=== PATIENT | female | born 1995 | race Caucasian/White ===

== ENCOUNTER → 2020-01-13 08:43 | Outpatient (CLI) | payer OTHER, SELFPAY ==
[2020-01-13 09:19] LABS: Add Manual Diff / Slide Review NO; Basophils Absolute Auto 0 /uL (0-100); Basophils Percent Auto 0.9 % (0-2); Eosinophils Absolute Auto 200 /uL (0-450); Hematocrit 42.5 % (36-46); Hemoglobin 14.9 g/dL (12.0-16.0); Lymphocytes Absolute Auto 1500 /uL (1100-4500); Lymphocytes Percent Auto 26.8 % (25-40); Mean Corpuscular Hemoglobin 29.1 PG (26-34); Mean Corpuscular Volume 83.1 fL (80-100); Monocytes Absolute Auto 400 /uL (0-900); Monocytes Percent Auto 7.5 % (3-14); Neutrophils Absolute Auto 3400 /uL (1500-7000); Neutrophils Percent Auto 61.8 % (50-75); Platelet Count 214 X10^3/uL (150-400); Red Blood Cell Count 5.11 X10^6/uL (4.0-5.2); Red Cell Distribution Width 13.2 % (11.6-14.8); White Blood Cell Count 5.6 X10^3/uL (4.5-11.0)
[2020-01-13 09:34] LABS: Hemoglobin A1C% w Est Avg Glu 6.1 % (4.0-6.0)
[2020-01-13 10:04] LABS: Alanine Aminotransferase 54 IU/L (<35); Albumin 4.5 g/dL (3.5-5.0); Albumin Globulin Ratio 1.3 (1.0-2.8); Alkaline Phosphatase 68 U/L (38-126); Aspartate Aminotransferase 40 IU/L (14-36); BUN Creatinine Ratio 16.7 (6-22); Bilirubin Total 0.5 mg/dL (0.2-1.3); Blood Urea Nitrogen 11 mg/dL (7-17); Calcium 9.9 mg/dL (8.4-10.2); Carbon Dioxide 27 mmol/L (22-32); Chloride 103 mmol/L (98-107); Cholesterol 216 mg/dL (140-199); Estimated Glomerular Filt Rate > 60.0 mL/min (>60); Globulin 3.5 g/dL (1.7-4.1); Glucose 127 mg/dL (70-100); HDL Cholesterol 40 mg/dL (40-60); HEMOLYSIS < 15 (0-50); LDL Cholesterol Calculated 147 mg/dL (<100); Potassium 4.6 mmol/L (3.4-5.1); Sodium 140 mmol/L (137-145); Triglycerides 147 mg/dL (35-150)
[2020-01-13 10:20] LABS: Follicle Stimulating Hormone 3.03 mIU/mL; Luteinizing Hormone 4.24 mIU/mL
[2020-01-13 10:21] LABS: Prolactin 15.5 ng/mL (3.0-18.6)
[2020-01-13 10:35] LABS: TSH w/ Reflex to FT4 1.61 uIU/mL (0.47-4.68)
[2020-01-13 10:36] LABS: Estradiol, Total 66.2 pg/mL
[2020-01-13 10:38] LABS: Testosterone 25.4 ng/dL (5.71-77.0)
== END ==
PROVIDERS: PCP Registered Nurse Diabetes Educator; Referring Provider Registered Nurse Diabetes Educator; Visit Provider Registered Nurse Diabetes Educator
DX: E66.9 Obesity, unspecified (principal); N91.5 Oligomenorrhea, unspecified; N97.9 Female infertility, unspecified; Z86.32 Personal history of gestational diabetes
CPT/HCPCS: 36415; 80053; 80061; 82627; 82670; 83001; 83002; 83036; 84146; 84403; 84443; 85025

== ENCOUNTER → 2020-01-22 09:18 | Outpatient (CLI) | payer OTHER, SELFPAY ==
[2020-01-22 11:03] LABS: Alanine Aminotransferase 72 IU/L (<35); Albumin 4.5 g/dL (3.5-5.0); Albumin Globulin Ratio 1.3 (1.0-2.8); Alkaline Phosphatase 68 U/L (38-126); Aspartate Aminotransferase 41 IU/L (14-36); Bilirubin Total 0.5 mg/dL (0.2-1.3); Bilirubin Unconjugated 0.4 mg/dL (0.0-1.1); Globulin 3.4 g/dL (1.7-4.1); Glucose 113 mg/dL (70-100); HEMOLYSIS < 15 (0-50); Total Protein 7.9 g/dL (6.3-8.2)
== END ==
PROVIDERS: PCP Registered Nurse Diabetes Educator; Referring Provider Registered Nurse Diabetes Educator; Visit Provider Registered Nurse Diabetes Educator
DX: R73.9 Hyperglycemia, unspecified (principal); R74.8 Abnormal levels of other serum enzymes
CPT/HCPCS: 36415; 80076; 82947

== ENCOUNTER 2020-04-01 16:02 | Emergency (ER) | payer OTHER, SELFPAY ==
[2020-04-01 16:05] VITALS: BP 156/119; PULSE 106; RESP 20; TEMP 36.9; O2SAT 98; BMI 50.1
--- NOTE | 2020-04-01 16:21 | ED_ITS ---
HPI - General Adult General Chief complaint: Urogenital-Female Stated complaint: MISCARRIAGE / BLEEDING ALOT Time Seen by Provider: 04/01/20 16:09 Source: patient Mode of arrival: Ambulatory Limitations: no limitations History of Present Illness HPI narrative: Patient is a 25-year-old female in who 2 days ago found out that she was having a miscarriage. Today she started having bleeding with passage of clots. She is having quite a bit of cramping. No fevers. She states she has gone through multiple pads an hour for the past several hours and was concerned about this so she came to the emergency department. According to review of her medical record her blood type is Rh positive. Related Data Home Medications Medication Instructions Recorded Confirmed prenat.vits,dhara,[id number] 1 tab PO DAILY 03/10/20 03/30/20 Previous Rx's Medication Instructions Recorded metformin 500 mg tablet 500 mg PO DAILY #60 tab 01/29/20 blood sugar diagnostic #120 ea 03/17/20 blood-glucose meter #1 ea 03/17/20 lancets #120 ea 03/17/20 triamcinolone acetonide 0.025 % 1 applic TOPICAL BID #15 g 03/24/20 topical cream hydrocodone-acetaminophen [Greenock] 1 tab PO Q4-6H PRN #7 tab 04/01/20 Allergies Allergy/AdvReac Type Severity Reaction Status Date / Time No Known Drug Allergies Allergy Verified 03/30/20 16:18 Review of Systems Constitutional Constitutional: Denies fever(s) Cardiovascular Cardiovascular: Denies chest pain and Denies dyspnea Respiratory Respiratory: Denies dyspnea Gastrointestinal Gastrointestinal: Reports abdominal pain (Cramping), Denies nausea and Denies vomiting Genitourinary Comments: Vaginal bleeding and cramping Integumentary/Breasts Skin/Breast: Denies lesions and Denies rash Neurologic Neurologic: Denies behavioral changes Psychiatric Psychiatric: Denies behavioral changes Hematologic/Lymphatic Hematologic/Lymphatic: Denies easy bleeding and Denies easy bruising Allergic/Immunologic Allergic/Immunologic: Denies urticaria Patient History Medical History Anxiety (~10/2016) Chicken pox (~2002) Female fertility problem Fractures (~2008) History of gestational diabetes (~2016) Hypertension Impaired fasting blood sugar Irregular menstrual cycle (~2017) Liver enzyme elevation Obesity Oligomenorrhea Screening for cervical cancer Wears glasses Surgical History Anesthesia History of section (~10/31/16) History of surgery on arm (~2004) Family History Mother Cancer Low TSH level Sister Blood disorder Personal history of medical treatment Grandfather Hypertension Hyperlipidemia Stroke Grandmother Hypertension Thyroid disorder Grandmother Cancer Diabetes mellitus Hyperlipidemia Hypertension Stroke Grandfather Family estrangement Family/Other Myocardial infarction Heart murmur Father No problems noted. Social History marital status: number of children: 1 household members: spouse and children lives independently: Yes pets and animals: Yes (X 2 dogs) education level: college (some 14 years Ed) occupational status: employed (Working at a [employer] - minimal exposure) current occupational exposures/hazards: Yes nile/confucianist: Mandaen special nile needs: No Smoking Status: Never smoker second hand exposure: No alcohol intake: former (pre- : social ) substance use type: does not use Smoking Status: Never smoker Exam Initial Vital Signs Initial Vital Signs: Vital Signs Temperature 98.4 F 04/01/20 16:05 Pulse Rate 106 H 04/01/20 16:05 Respiratory Rate 20 04/01/20 16:05 Blood Pressure 156/119 H 04/01/20 16:05 Pulse Oximetry 98 04/01/20 16:05 Const General: cooperative Limitations: mental status not altered HENMT Head: normal to inspection and normocephalic Resp Effort & Inspection: normal respiratory effort Speculum Exam - Cervix: cervical os open OB/External & Speculum: cervical os open Other: Patient did have blood in the vaginal vault. She also had a small amount of tissue in the cervical os. This was removed with ring forceps. Only a small amount of bleeding present prior to removal speculum Neuro General: patient alert and patient awake Extrem General: capillary refill normal Psych Appearance: well kempt Course Orders Ordered: Discontinued Medications Hydrocodone Bitart/Acetaminophen (Hydrocodone/Acet 5/325 Tablet) 1 tab PO NOW ONE Stop: 04/01/20 16:21 Last Admin: 04/01/20 16:45 Dose: 1 tab Documented by: RSTONE Ketorolac Tromethamine (Ketorolac 60 Mg/2 Ml Vial) 30 mg IM NOW ONE Stop: 04/01/20 17:50 Last Admin: 04/01/20 18:14 Dose: 30 mg Documented by: DERRICK Vital Signs Vital signs: Vital Signs - 8 hr 04/01/20 16:05 04/01/20 18:05 04/01/20 18:06 Temperature 98.4 F Pulse Rate 106 H Respiratory Rate 20 Blood Pressure 156/119 H 151/91 H Pulse Oximetry 98 99 Medical Decision Making MDM Narrative Medical decision making narrative: I had a discussion with the patient regarding her symptoms and what she could expect over the next several hours/days. She was given strict return precautions. No indication for RhoGAM as she is Rh positive. Sent home with symptom treatment. She will come back if starts to have new or worsening symptoms. She expressed understanding and agreement. Discharge Plan Departure Patient Disposition: Home Clinical Impression: Incomplete miscarriage Instructions: Dealing With Miscarriage, DI for Miscarriage Activity Restrictions/Additional Instructions: Recommend you contact your OB provider to discuss follow-up. If you started to have chest pain or lightheadedness or shortness of breath please return to the emergency department. Continued bleeding and pain over the next several hours is expected. Return to emergency department for any new or worsening symptoms Prescriptions: New hydrocodone-acetaminophen [Greenock] 5-325 mg tablet 1 tab PO Q4-6H PRN (Reason: pain) Qty: 7 RF: 0 No Action triamcinolone acetonide 0.025 % cream 1 applic topical BID Qty: 15 RF: 1 metformin 500 mg tablet 500 mg PO DAILY Qty: 60 RF: 2 (DME) blood-glucose meter [Blood Glucose Monitoring] Kit See Rx Instructions .ROUTE .MEDSUPPLY Qty: 1 RF: 0 (DME) Blood Glucose Test Strip See Rx Instructions .ROUTE .MEDSUPPLY Qty: 120 RF: 3 (DME) lancets Misc See Rx Instructions .ROUTE .MEDSUPPLY Qty: 120 RF: 3 prenat.vits,dhara,[id number] Tablet 1 tab PO DAILY RF: 0 Referrals: Subhash Velasquez ARNP [Primary Care Provider] -
[2020-04-01] MEDS: HYDROCODONE/ACET 5/325 TABLET 1 TAB PO (16:45)
[2020-04-01 18:05] VITALS: O2SAT 99
[2020-04-01 18:06] VITALS: BP 151/91
--- NOTE | 2020-04-01 18:09 | PC.NURSE ---
Blanca MINER assisted Dr. Whitten with Pelvic exam.
[2020-04-01] MEDS: KETOROLAC 60 MG/2 ML VIAL 30 MG IM (18:14)
== END 2020-04-01 18:24 | disposition home or self-care (01) ==
PROVIDERS: Emergency Provider Emergency Medicine; PCP Registered Nurse Diabetes Educator
DX: O03.4 Incomplete spontaneous abortion without complication (principal)
CPT/HCPCS: 96372; 99281; 99283; J1885

== ENCOUNTER → 2020-08-01 09:05 | Outpatient (CLI) | payer OTHER, SELFPAY ==
[2020-08-01 10:55] LABS: HCG Quantitative /Beta subunit 146.4 mIU/mL
== END ==
PROVIDERS: PCP Registered Nurse Diabetes Educator; Referring Provider Obstetrics & Gynecology; Visit Provider Obstetrics & Gynecology
DX: Z34.81 Encounter for supervision of other normal pregnancy, first trimester (principal)
CPT/HCPCS: 36415; 84702

== ENCOUNTER → 2020-08-03 10:37 | Outpatient (CLI) | payer OTHER, SELFPAY | PROVIDERS: Obstetrics & Gynecology; PCP Registered Nurse Diabetes Educator; Referring Provider Registered Nurse Diabetes Educator; Visit Provider Registered Nurse Diabetes Educator | DX: Z34.81 Encounter for supervision of other normal pregnancy, first trimester (principal) | CPT/HCPCS: 84702 ==

== ENCOUNTER → 2020-08-05 13:31 | Outpatient (CLI) | payer OTHER, SELFPAY ==
[2020-08-05 14:48] LABS: HCG Quantitative /Beta subunit 436 mIU/mL
== END ==
PROVIDERS: PCP Registered Nurse Diabetes Educator; Referring Provider Obstetrics & Gynecology; Visit Provider Obstetrics & Gynecology
DX: O26.859 Spotting complicating pregnancy, unspecified trimester (principal)
CPT/HCPCS: 36415; 84702

== ENCOUNTER → 2020-08-17 16:17 | Outpatient (CLI) | payer OTHER, SELFPAY ==
[2020-08-17 17:40] LABS: HCG Quantitative /Beta subunit 1836.9 mIU/mL
== END ==
PROVIDERS: PCP Registered Nurse Diabetes Educator; Referring Provider Obstetrics & Gynecology; Visit Provider Obstetrics & Gynecology
DX: N91.2 Amenorrhea, unspecified (principal)
CPT/HCPCS: 36415; 84702

== ENCOUNTER → 2020-08-31 09:55 | Outpatient (CLI) | payer OTHER, SELFPAY ==
[2020-08-31 11:22] LABS: HCG Quantitative /Beta subunit 1983.6 mIU/mL
== END ==
PROVIDERS: PCP Registered Nurse Diabetes Educator; Referring Provider Obstetrics & Gynecology; Visit Provider Obstetrics & Gynecology
DX: N91.2 Amenorrhea, unspecified (principal)
CPT/HCPCS: 36415; 84702

== ENCOUNTER → 2020-09-28 11:31 | Outpatient (CLI) | payer OTHER, SELFPAY ==
[2020-09-28 14:03] LABS: COVID19 -Nasal RAPID Negative (Negative)
== END ==
PROVIDERS: PCP Registered Nurse Diabetes Educator; Visit Provider Obstetrics & Gynecology
DX: Z01.812 Encounter for preprocedural laboratory examination (principal); Z20.822 Contact with and (suspected) exposure to COVID-19
CPT/HCPCS: 87635

== ENCOUNTER 2020-09-29 09:41 | Day surgery (SDC) | payer OTHER, SELFPAY ==
[2020-09-28 14:23] VITALS: BMI 44.6
--- NOTE | 2020-09-29 | PATH_ITS ---
[facility] Accession Number: [id number] . 01 Material submitted: . product of conception - PRODUCTS OF CONCEPTION . 02 Diagnosis: Products of Conception: Products of conception identified. [facility] 10/02/2020 1043 Local . 02 Electronically signed: . Mounika Ochoa MD, Pathologist NPI- [id number] . 01 Gross description: . The specimen is received in formalin labeled products of conception and consists of multiple putnam-pink fragments of soft tissue, measuring 4.0 x 4.0 x 1.2 cm in aggregate. No chorionic villi or parts are identified. The specimen is entirely submitted in cassettes A1-A2. ([id number]) /[facility] 09/30/2020 1608 Local . 02 Pathologist provided ICD-10: O02.1 . 02 CPT . 712685 Performed at: 01 [facility] Cyt[facility] [address] [id number] MD Jose J Bhatia MD Phone: [phone] Performed at: 02 [facility] [place] [address] [place], [place] [id number] MD Verna Condon MD Phone: [phone]
[2020-09-29] MEDS: ACETAMINOPHEN 325 MG TABLET 975 MG PO (10:11)
[2020-09-29] MEDS: SCOPOLAMINE 1 PATCH TOP (10:12)
[2020-09-29 10:13] VITALS: BP 158/92; PULSE 77; RESP 20; TEMP 36.1; O2SAT 100; BMI 44.6
[2020-09-29] MEDS: LACTATED RINGERS 1,000 ML 100 ML IV (10:22)
--- NOTE | 2020-09-29 10:41 | PM.HP.1 ---
History of Present Illness History of Present Illness Date Patient Seen: 09/29/20 Time Patient Seen: 10:41 Chief complaint: SDC Narrative: Patient is a 25-year-old 3 para 1 who presents for suction D&C for an incomplete Patient History Medical History Anxiety (~10/2016) Chicken pox (~2002) Female fertility problem Fractures (~2008) History of gestational diabetes (~2016) Hypertension Impaired fasting blood sugar Irregular menstrual cycle (~2017) Liver enzyme elevation Obesity Oligomenorrhea Screening for cervical cancer Wears glasses Surgical History Anesthesia History of section (~10/31/16) History of surgery on arm (~2004) Family & Social History Family History Mother Cancer Low TSH level Sister Blood disorder Personal history of medical treatment Grandfather Hypertension Hyperlipidemia Stroke Grandmother Hypertension Thyroid disorder Grandmother Cancer Diabetes mellitus Hyperlipidemia Hypertension Stroke Grandfather Family estrangement Family/Other Myocardial infarction Heart murmur Father No problems noted. Social History: household members spouse,children lives independently Yes Tobacco & Substance use: Smoking Status Never smoker alcohol intake current alcohol intake frequency holiday/special occasion Substance Use Type does not use Meds Home Medications and Allergies Home Medications Medication Instructions Recorded Confirmed Type metformin 500 mg tablet 500 mg PO DAILY #60 tab 01/29/20 09/28/20 Rx blood sugar diagnostic #120 ea 03/17/20 09/28/20 Rx blood-glucose meter #1 ea 03/17/20 09/28/20 Rx lancets #120 ea 03/17/20 09/28/20 Rx triamcinolone acetonide 0.025 % 1 applic TOPICAL BID #15 g 03/24/20 09/29/20 Rx topical cream Allergies Allergy/AdvReac Type Severity Reaction Status Date / Time No Known Drug Allergies Allergy Verified 09/29/20 10:05 Exam Vital Signs (past 8 hours): - 09/29/20 10:13 Temperature 97 F L Pulse Rate 77 Respiratory Rate 20 Blood Pressure 158/92 H Pulse Oximetry 100 Oxygen Delivery Method Room Air Narrative Exam Narrative: HEENT: No thyromegaly, no anterior cervical or supraclavicular lymphadenopathy. Lungs:Clear to auscultation bilaterally, no wheezes. Cardiovascular: Regular rate and rhythm, no murmurs, rubs, or gallops. Abdomen: Well-healed Pfannenstiel scars. No hepatosplenomegaly. No masses palpable. External genitalia: Normal Vagina: Normal Cervix: Normal Bimanual exam: 7 Week size uterus. Mobile. Assessment & Plan Assessment & Plan narrative: Assessment: 25-year-old 3 para 1 with an incomplete Plan: Suction D&C The risks, benefits, and alternatives to the procedure were explained to the patient. The risks including bleeding, infection, and uterine perforation. She understands these risks and agrees to proceed. A full par Q was held and consent form was signed. COVID-19 COVID-19 status: Negative Result date/Date tested (Pos, Neg/Pending): 09/28/20 Time Spent With Patient Time with patient: less than 15 minutes
--- NOTE | 2020-09-29 10:42 | PM.PREOP ---
Pre-operative Note COVID-19 COVID-19 status: Negative Result date/Date tested (Pos, Neg/Pending): 09/28/20 Interval Note History & Physical reviewed/Exam performed by Physician: Yes Changes to H&P: No H&P completed within 30 days and has changed as indicated here:: 09/29/20
--- NOTE | 2020-09-29 10:49 | SUR.OPER ---
Lithotomy on padded OR bed, head on pillow, arms secured on padded arm boards at <90 degrees abduction. Legs secured in padded yellow fins stirrups.
[2020-09-29 11:25] VITALS: BP 150/85; PULSE 85; RESP 16; TEMP 35.5; O2SAT 96
[2020-09-29 11:30] VITALS: BP 152/82; PULSE 77; RESP 14; O2SAT 95
--- NOTE | 2020-09-29 11:31 | PM.GYNOP.1 ---
Operative Date/Time/Diagnoses Date of procedure: 09/29/20 Time of procedure: 11:31 Pre-op diagnosis: Incomplete miscarriage Post-op diagnosis: same Procedure & Clinicians Procedure: Procedures Operation Date: 09/29/20 10:45 Actual Procedures Side Surgeon p Italo D&Edith Enriquez MD Indications: Incomplete miscarriage Surgeon: Frances Enriquez Anesthesia Type: General (LMA) Operative Notes Findings: 7 week size anteverted uterus Moderate amount of products conception Closure Type: not applicable Specimen(s): products of conception Estimated blood loss (mL): 15 Blood products transfused: none Procedure in detail: After informed consent was obtained, the patient was taken to the operating room where she was placed in the dorsal supine position. After adequate LMA general anesthesia was achieved, she was placed in the dorsal lithotomy position, and prepped and draped in the usual sterile fashion. A time-out was performed. A bivalve speculum was placed into the vagina and the anterior lip of the cervix was grasped with a single-tooth tenaculum. The cervical os was sequentially dilated to the # 9 Hegar dilator. The # 7 curved plastic curette passed easily into the endometrial cavity. Several passes with suction revealed a large amount of products of conception. The curette was removed. Gentle sharp curettage was performed and then several more passes with suction revealed blood only. The instruments were removed from the uterus. The single-tooth tenaculum was removed from the anterior lip of the cervix. The bivalve speculum was removed from the vagina. Sponge, lap, and instrument counts were correct x2. The patient tolerated the procedure well, and was taken to PACU in stable condition. Complications: none Post-operative Condition: stable Disposition: PACU Plan for aftercare: Home after recovery
[2020-09-29 11:37] VITALS: BP 133/93; PULSE 88; RESP 16; O2SAT 98
[2020-09-29 11:42] VITALS: BP 134/91; PULSE 75; RESP 14; TEMP 36.3; O2SAT 99
[2020-09-29] MEDS: OXYCODONE IR 5 MG TABLET PO (11:49)
[2020-09-29 12:03] VITALS: BP 134/90; PULSE 78; RESP 16; TEMP 36.2; O2SAT 98
== END 2020-09-29 12:05 | disposition home or self-care (01) ==
PROVIDERS: PCP Registered Nurse Diabetes Educator; Referring Provider Obstetrics & Gynecology; Visit Provider Obstetrics & Gynecology
PROC: (CPT 58120; principal; 2020-09-29 10:45)
DX: O03.4 Incomplete spontaneous abortion without complication (principal); E66.01 Morbid (severe) obesity due to excess calories; Z68.42 Body mass index [BMI] 45.0-49.9, adult; R73.03 Prediabetes; F41.9 Anxiety disorder, unspecified
CPT/HCPCS: 59812; 82962; J1100; J1885; J2250; J2405; J2704

== ENCOUNTER → 2021-01-11 17:08 | Outpatient (CLI) | payer OTHER, SELFPAY ==
[2021-01-11 18:37] LABS: Glucose 78 mg/dL (70-100)
[2021-01-11 18:53] LABS: Free T4, Direct Thyroxine 1.09 ng/dL (0.78-2.19)
[2021-01-11 19:07] LABS: Progesterone, Total 5.16 ng/mL; Thyroid Stimulating Hormone 0.711 uIU/mL (0.47-4.68)
[2021-01-13 12:09] LABS: Dilute Russell Viper Venom 34.3 sec (0.0-47.0); Lupus Reflex Interpretation Comment: (.); PTT-LA 30.8 sec (0.0-51.9)
== END ==
PROVIDERS: Obstetrics & Gynecology; PCP Registered Nurse Diabetes Educator; Referring Provider Registered Nurse Diabetes Educator; Visit Provider Registered Nurse Diabetes Educator
DX: O03.9 Complete or unspecified spontaneous abortion without complication (principal); N92.6 Irregular menstruation, unspecified; N96 Recurrent pregnancy loss; R73.01 Impaired fasting glucose; R73.9 Hyperglycemia, unspecified
CPT/HCPCS: 36415; 81240; 81241; 82947; 84144; 84439; 84443; 85598; 85613; 86850; 86900; 86901

== ENCOUNTER → 2021-02-24 12:48 | Outpatient (CLI) | payer OTHER, SELFPAY ==
[2021-02-24 13:28] LABS: COVID19 -Nasal RAPID Negative (Negative)
== END ==
PROVIDERS: PCP Registered Nurse Diabetes Educator; Visit Provider Nurse Practitioner Family
DX: Z20.822 Contact with and (suspected) exposure to COVID-19 (principal); R05.9 Cough, unspecified; R09.81 Nasal congestion; R09.89 Other specified symptoms and signs involving the circulatory and respiratory systems
CPT/HCPCS: 87635

== ENCOUNTER → 2021-07-12 12:16 | Outpatient (CLI) | payer BC, SELFPAY ==
[2021-07-12 14:48] LABS: HCG Quantitative /Beta subunit 185 mIU/mL
== END ==
PROVIDERS: PCP Registered Nurse Diabetes Educator; Referring Provider Obstetrics & Gynecology; Visit Provider Obstetrics & Gynecology
DX: N91.2 Amenorrhea, unspecified (principal)
CPT/HCPCS: 36415; 84702

== ENCOUNTER → 2021-07-14 12:33 | Outpatient (CLI) | payer BC, SELFPAY ==
[2021-07-14 14:27] LABS: HCG Quantitative /Beta subunit 427.8 mIU/mL
== END ==
PROVIDERS: PCP Registered Nurse Diabetes Educator; Referring Provider Obstetrics & Gynecology; Visit Provider Obstetrics & Gynecology
DX: N91.2 Amenorrhea, unspecified (principal)
CPT/HCPCS: 36415; 84702

== ENCOUNTER → 2021-08-17 15:45 | Outpatient (CLI) | payer BC, SELFPAY ==
[2021-08-17 16:34] LABS: Add Manual Diff / Slide Review NO; Basophils Absolute Auto 0 /uL (0-100); Basophils Percent Auto 0.4 % (0-2); Eosinophils Absolute Auto 300 /uL (0-450); Eosinophils Percent Auto 3.1 % (2-4); Hematocrit 39.2 % (36-46); Hemoglobin 13.4 g/dL (12.0-16.0); Lymphocytes Absolute Auto 2000 /uL (1100-4500); Lymphocytes Percent Auto 21.4 % (25-40); Mean Corpuscular HGB Conc 34.3 % (30-36); Mean Corpuscular Hemoglobin 27.8 PG (26-34); Mean Corpuscular Volume 81.2 fL (80-100); Monocytes Absolute Auto 500 /uL (0-900); Monocytes Percent Auto 4.8 % (3-14); Neutrophils Absolute Auto 6700 /uL (1500-7000); Neutrophils Percent Auto 70.3 % (50-75); Platelet Count 224 X10^3/uL (150-400); Red Blood Cell Count 4.82 X10^6/uL (4.0-5.2); Red Cell Distribution Width 13.9 % (11.6-14.8); White Blood Cell Count 9.5 X10^3/uL (4.5-11.0)
[2021-08-17 16:50] LABS: Alanine Aminotransferase 26 IU/L (<35); Aspartate Aminotransferase 24 IU/L (14-36); BUN Creatinine Ratio 14.3 (6-22); Blood Urea Nitrogen 9 mg/dL (7-17); Estimated Glomerular Filt Rate > 60 mL/min (>60); Uric Acid 3.9 mg/dL (2.5-6.2)
[2021-08-17 17:01] LABS: Hemoglobin A1C% w Est Avg Glu 5.2 % (4.0-6.0)
[2021-08-18 20:43] LABS: Hepatitis B Surface Antigen NEGATIVE s/c (NEGATIVE); Rubella Antibody IgG 4.2 IU/mL (>15)
[2021-08-18 20:57] LABS: HIV 1 & 2 Ab/Ag 4th Gen Combo NEGATIVE (NEGATIVE); Hep C Virus Ab w/Reflex Quant NEGATIVE s/c (NEGATIVE)
[2021-08-19 07:45] LABS: RPR Screen Non Reactive (Non Reactive); Varicella IgG Antibody 201 index (Immune >165)
== END ==
PROVIDERS: PCP Registered Nurse Diabetes Educator; Referring Provider Obstetrics & Gynecology; Visit Provider Obstetrics & Gynecology
DX: O09.291 Supervision of pregnancy with other poor reproductive or obstetric history, first trimester (principal); Z3A.10 10 weeks gestation of pregnancy; I10 Essential (primary) hypertension; Z86.32 Personal history of gestational diabetes
CPT/HCPCS: 36415; 80055; 82565; 83036; 84450; 84460; 84520; 84550; 86787; 86803; 86850; 86900; 86901; 87389

== ENCOUNTER → 2021-08-19 13:37 | Outpatient (CLI) | payer BC, SELFPAY ==
[2021-08-19 13:56] LABS: Appearance Urine UA CLEAR; Bilirubin Urine UA NEGATIVE (NEGATIVE); Color Urine UA YELLOW; Glucose Urine UA NEGATIVE (Negative); Ketones Urine UA NEGATIVE (NEGATIVE); Leukocyte Esterase Urine UA TRACE (NEGATIVE); Nitrite Urine UA NEGATIVE (Negative); Occult Blood Urine UA NEGATIVE (Negative); Protein Urine UA NEGATIVE (Negative); Specific Gravity Urine UA >=1.030 (1.000-1.035); Urobilinogen Urine UA 0.2 E.U./dL (0.2)
[2021-08-19 14:13] LABS: Bacteria Urine Many (>30); Calcium Oxalate Crystals Urine Moderate; Culture Indicated Urine Specimen Cultured; RBC Urine None Seen (0-5/HPF); Squamous Epithelial Cell Urine 5-10 /HPF (0-5/HPF); WBC Urine 5-10/HPF (0-5/HPF)
== END ==
PROVIDERS: PCP Registered Nurse Diabetes Educator; Referring Provider Obstetrics & Gynecology; Visit Provider Obstetrics & Gynecology
DX: Z34.80 Encounter for supervision of other normal pregnancy, unspecified trimester (principal)
CPT/HCPCS: 81001; 87086

== ENCOUNTER → 2021-09-15 16:02 | Outpatient (CLI) | payer BC, SELFPAY ==
[2021-09-15 20:47] LABS: Urine N gonorrhoeae NOT DETECTED
[2021-09-15 21:09] LABS: Urine Chlamydia NOT DETECTED
== END ==
PROVIDERS: PCP Registered Nurse Diabetes Educator; Visit Provider Obstetrics & Gynecology
DX: Z34.82 Encounter for supervision of other normal pregnancy, second trimester (principal); Z3A.13 13 weeks gestation of pregnancy
CPT/HCPCS: 87491; 87591

== ENCOUNTER → 2021-11-09 09:11 | Outpatient (CLI) | payer BC, SELFPAY ==
--- NOTE | 2021-11-09 09:13 | DI.US.S_ITS ---
PROCEDURE: US OB >= 14 WEEKS FETUS INDICATIONS: anatomy scan OUTSIDE/PRIOR DATING DATA: Last menstrual period (LMP): 06/03/2021. LMP-based estimated date of delivery (OVIDIO): 03/10/2022. First dating scan (date and location): 11/09/2021. Estimated date of delivery (OVIDIO) from first dating scan: 03/18/2022. TECHNIQUE: Real-time scanning was performed of the fetus, with image documentation and biometric measurements. Endovaginal scanning: Not performed. COMPARISON: [facility], US, US OB >= 14 WEEKS FETUS, 10/15/2021, 15:14. FINDINGS: General: A single living intrauterine gestation is present. Presentation: Breech. Placenta: Placental position is posterior , without previa. Amniotic fluid index: 17.1 cm, normal range is 5-24 cm. Single deepest vertical pocket is 5.1 cm. heart rate: 143 beats per minute. Maternal cervical canal: 4.6 cm long. Normal lower limit is 2.5 cm. biometrics: Biparietal diameter: 5.1 cm, 21 weeks 3 days Head circumference: 19.4 cm, 21 weeks 4 days Abdominal circumference: 17.6 cm, 22 weeks 2 days Femur length: 3.8 cm, 22 weeks 1 day estimated gestational age by initial ultrasound: 21 weeks 4 days Composite gestational age from present scan: 21 weeks 6 days Estimated weight and percentile: 484 g, 77th percentile Anatomic survey: Neuro: Ventricles are non-dilated at less than 10 mm. Cisterna magna is normal at 3-11 mm. Cerebellum is normal in size and morphology. Nuchal skin fold: Normal at less than 6 mm between 14-21 weeks gestational age. Face: Nose and lips, facial profile are normal. Spine: No evidence for spina bifida. Heart: Four-chamber heart view and ventricular outflow tracts not well visualized. Diaphragm: Diaphragm is intact. Stomach: Left-sided stomach is present. Kidneys: No hydronephrosis. Normal is less than 5 mm in 2nd trimester, less than 7 mm in 3rd trimester. Cord: 3-vessel cord has orthotopic insertion. Bladder: Normal in size. Extremities: All 4 extremities identified. IMPRESSION: 1. Single living intrauterine in breech presentation. 2. Four chamber cardiac view and ventricular outflow tracts were not well visualized. Follow-up/repeat evaluation can be performed if indicated. 3. Otherwise normal 2nd trimester anatomy survey. No anomalies detected at this time. We strive to produce accurate, complete, and clear reports of imaging services. To assist us in improving patient care, this report was composed using standard report templates and voice recognition software. Therefore, it may contain abnormal punctuation, insertions and/or omissions. Occasional wrong-word or sound-alike substitutions may occur. Though we review the report and make efforts to correct it, we do recommend that the report be read carefully in proper context to recognize any text inaccuracies. Dictated by: Mitchell Harrell M.D. on 11/09/2021 at 20:29 Approved by: Mitchell Harrell M.D. on 11/09/2021 at 20:35
[2021-11-11 21:07] LABS: AFP, Serum 31.2 ng/mL (.); Estriol, Free 1.83 ng/mL (.); Inhibin A, Dimeric 82.45 pg/mL (.); Inhibin A, MoM See interpretation. (.); Maternal Ethnicity Caucasian (.); Maternal Weight 307 lbs (.); Number of Fetuses No (.); OSBR Risk 1 IN 10000 (.); Results Report (.); Test Results See interpretation. (.); hCG, MoM See interpretation. (.); hCG, Serum 9908 mIU/mL (.)
== END ==
PROVIDERS: PCP Registered Nurse Diabetes Educator; Referring Provider Obstetrics & Gynecology; Visit Provider Obstetrics & Gynecology
DX: Z34.92 Encounter for supervision of normal pregnancy, unspecified, second trimester (principal); Z3A.21 21 weeks gestation of pregnancy
CPT/HCPCS: 36415; 76811; 82105; 82677; 84702; 86336

== ENCOUNTER → 2021-12-01 11:03 | Outpatient (CLI) | payer BC, SELFPAY ==
--- NOTE | 2021-12-01 11:04 | DI.US.S_ITS ---
PROCEDURE: US OB FOLLOW UP INDICATIONS: Heart and outflow tracks no well seen on Anatomy scan OUTSIDE/PRIOR DATING DATA: Last menstrual period (LMP): 06/03/2021. LMP-based estimated date of delivery (OVIDIO): 03/10/2022. First dating scan (date and location): 11/09/2021; Dr. Enriquez. Estimated date of delivery (OVIDIO) from first dating scan: 03/18/2022. TECHNIQUE: Real-time scanning was performed of the fetus, with image documentation and biometric measurements. Endovaginal scanning: Not performed COMPARISON: [facility], OB >= 14 WEEKS FETUS, 10/15/2021, 15:14. [facility], , OB >= 14 WEEKS FETUS, 11/09/2021, 10:55. FINDINGS: General: A single living intrauterine gestation is present. Presentation: Cephalic. Placenta: Placental position is posterior , without previa. Amniotic fluid index: 12.7 cm, normal range is 5-24 cm. Single deepest vertical pocket is 4.7 cm. heart rate: 147 beats per minute. Maternal cervical canal: 4.6 cm long. Normal lower limit is 2.5 cm. biometrics: Not performed. Clinically estimated gestational age: 24 weeks 5 days Other: There is a four-chamber heart. Ventricular outflow views are suboptimal due to maternal obesity and lie. No definitive cardiac abnormalities identified. IMPRESSION: 1. A single living intrauterine gestation redemonstrated. 2. Normal four-chamber heart. Ventricular outflow views are suboptimal. No definitive cardiac anomaly. We strive to produce accurate, complete, and clear reports of imaging services. To assist us in improving patient care, this report was composed using standard report templates and voice recognition software. Therefore, it may contain abnormal punctuation, insertions and/or omissions. Occasional wrong-word or sound-alike substitutions may occur. Though we review the report and make efforts to correct it, we do recommend that the report be read carefully in proper context to recognize any text inaccuracies. Dictated by: Villa Call M.D. on 12/01/2021 at 16:59 Approved by: Villa Call M.D. on 12/01/2021 at 17:04
== END ==
PROVIDERS: PCP Registered Nurse Diabetes Educator; Referring Provider Obstetrics & Gynecology; Visit Provider Obstetrics & Gynecology
DX: Z36.2 Encounter for other antenatal screening follow-up (principal); Z3A.24 24 weeks gestation of pregnancy
CPT/HCPCS: 76816; 76817

== ENCOUNTER → 2021-12-28 10:18 | Outpatient (CLI) | payer BC, SELFPAY ==
[2021-12-28 12:05] LABS: Hemoglobin 11.9 g/dL (12.0-16.0)
[2021-12-28 12:19] LABS: GTT (PREG) 1 Hour PP 50gm Dose 150 mg/dL (76-139)
== END ==
PROVIDERS: PCP Registered Nurse Diabetes Educator; Referring Provider Obstetrics & Gynecology; Visit Provider Obstetrics & Gynecology
DX: Z34.82 Encounter for supervision of other normal pregnancy, second trimester (principal); Z3A.26 26 weeks gestation of pregnancy
CPT/HCPCS: 36415; 82950; 85014; 85018

== ENCOUNTER → 2022-01-10 09:02 | Outpatient (CLI) | payer BC, SELFPAY ==
[2022-01-10 10:15] LABS: Glucose Fasting Gestational 98 mg/dL (76-95)
[2022-01-10 12:18] LABS: Glucose 2 Hour Gest 160 mg/dL (76-155)
[2022-01-10 12:43] LABS: Glucose Tol Interp,Gestational INTERPRETATION
[2022-01-10 13:39] LABS: Glucose 3 Hour Gest 97 mg/dL (76-140)
[2022-01-10 16:08] LABS: Glucose 1 Hour Gest 190 mg/dL (76-180)
== END ==
PROVIDERS: PCP Registered Nurse Diabetes Educator; Referring Provider Obstetrics & Gynecology; Visit Provider Obstetrics & Gynecology
DX: O09.292 Supervision of pregnancy with other poor reproductive or obstetric history, second trimester (principal); R73.09 Other abnormal glucose; Z86.32 Personal history of gestational diabetes; Z3A.00 Weeks of gestation of pregnancy not specified
CPT/HCPCS: 36415; 82951; 82952

== ENCOUNTER 2022-02-11 12:26 | Outpatient (CLI) | payer BC, SELFPAY ==
[2022-02-11 14:39] LABS: Add Manual Diff / Slide Review NO; Basophils Absolute Auto 0 /uL (0-100); Basophils Percent Auto 0.1 % (0-2); Eosinophils Absolute Auto 100 /uL (0-450); Eosinophils Percent Auto 1.5 % (2-4); Hematocrit 36.3 % (36-46); Hemoglobin 12.5 g/dL (12.0-16.0); Lymphocytes Absolute Auto 1700 /uL (1100-4500); Lymphocytes Percent Auto 18.2 % (25-40); Mean Corpuscular HGB Conc 34.4 % (30-36); Mean Corpuscular Hemoglobin 28.3 PG (26-34); Mean Corpuscular Volume 82.1 fL (80-100); Monocytes Absolute Auto 500 /uL (0-900); Monocytes Percent Auto 5.6 % (3-14); Neutrophils Absolute Auto 6900 /uL (1500-7000); Neutrophils Percent Auto 74.6 % (50-75); Platelet Count 190 X10^3/uL (150-400); Red Blood Cell Count 4.42 X10^6/uL (4.0-5.2); Red Cell Distribution Width 13.6 % (11.6-14.8); White Blood Cell Count 9.3 X10^3/uL (4.5-11.0)
[2022-02-11 14:51] LABS: Alanine Aminotransferase 14 IU/L (<35); Albumin 3.7 g/dL (3.5-5.0); Alkaline Phosphatase 114 U/L (38-126); Aspartate Aminotransferase 27 IU/L (14-36); BUN Creatinine Ratio 15.9 (6-22); Bilirubin Total 0.4 mg/dL (0.2-1.3); Blood Urea Nitrogen 7 mg/dL (7-17); Calcium 9.2 mg/dL (8.4-10.2); Carbon Dioxide 20 mmol/L (22-32); Chloride 106 mmol/L (98-107); Estimated Glomerular Filt Rate > 60 mL/min (>60); Globulin 3.6 g/dL (1.7-4.1); Glucose 71 mg/dL (70-100); HEMOLYSIS < 15 (0-50); Potassium 3.9 mmol/L (3.4-5.1); Sodium 137 mmol/L (137-145); Total Protein 7.3 g/dL (6.3-8.2)
[2022-02-11 15:12] LABS: Creatinine Urine Random 163.6 mg/dL
[2022-02-11 15:19] LABS: Protein (Total) Urine Random < 5 mg/dL (0-12); Protein Creatinine Ratio Urine 0.03 GRAM/24H
== END 2022-02-11 13:55 | disposition home or self-care (01) ==
LOC: LABOR 13:10 → OB 02-14 08:55
PROVIDERS: PCP Registered Nurse Diabetes Educator; Referring Provider Obstetrics & Gynecology; Visit Provider Obstetrics & Gynecology
DX: O24.414 Gestational diabetes mellitus in pregnancy, insulin controlled (principal); Z3A.35 35 weeks gestation of pregnancy; O13.3 Gestational [pregnancy-induced] hypertension without significant proteinuria, third trimester; Z3A.37 37 weeks gestation of pregnancy
CPT/HCPCS: 59025; 76815; 80053; 82570; 84156; 85025; G0378; G0379

== ENCOUNTER → 2022-02-11 13:57 | Outpatient (CLI) | payer BC, SELFPAY ==
--- NOTE | 2022-02-11 13:58 | DI.US.S_ITS ---
PROCEDURE: US OB LIMITED INDICATIONS: growth and fluids OUTSIDE/PRIOR DATING DATA: Last menstrual period (LMP): 06/03/2021. LMP-based estimated date of delivery (OVIDIO): 03/10/2022. First dating scan (date and location): 11/09/2021; ; Dr. Enriquez. Estimated date of delivery (OVIDIO) from first dating scan: 03/18/2022. The calculations are made using the working OVIDIO of 03/18/2022. TECHNIQUE: Real-time scanning was performed of the fetus, with image documentation and biometric measurements. Biophysical profile was also obtained. Endovaginal scanning: Not performed COMPARISON: [facility], OB >= 14 WEEKS FETUS, 01/14/2022, 10:19. [facility] OB FOLLOW UP, 12/01/2021, 11:42. [facility] OB >= 14 WEEKS FETUS, 11/09/2021, 10:55. [facility] OB >= 14 WEEKS FETUS, 10/15/2021, 15:14. [facility], OB <= 14 WEEKS FETUS, 08/17/2021, 15:42. FINDINGS: General: A single living intrauterine gestation is present. Presentation: Cephalic. Placenta: Placental position is posterior , without previa. Amniotic fluid index: 13.7 cm, normal range is 5-24 cm. Single deepest vertical pocket is 4.9 cm. heart rate: 150 beats per minute. Maternal cervical canal: Not visualized. biometrics: Biparietal diameter: 35 weeks 3 days Head circumference: 35 weeks 4 days Abdominal circumference: 36 weeks 5 days Femur length: 35 weeks 1 day Clinically estimated gestational age: 35 weeks 0 days Composite gestational age from present scan: 37 weeks 2 days Estimated weight and percentile: 2834 g; 77%. IMPRESSION: 1. A single living intrauterine gestation with appropriate interval growth. 2. The estimated weight is 2834 g, 77% for gestation age. 3. heart visualization remains suboptimal due to maternal body habitus, lie and gestational age. We strive to produce accurate, complete, and clear reports of imaging services. To assist us in improving patient care, this report was composed using standard report templates and voice recognition software. Therefore, it may contain abnormal punctuation, insertions and/or omissions. Occasional wrong-word or sound-alike substitutions may occur. Though we review the report and make efforts to correct it, we do recommend that the report be read carefully in proper context to recognize any text inaccuracies. Measurement variability for biometric dating: +/- 7 days from 14 weeks to 15 weeks 6 days gestation, +/- 10 days from 16 weeks to 21 weeks 6 days gestation, +/- 2 weeks from 22 weeks to 27 weeks 6 days gestation, +/- 3 weeks for 28 weeks gestation or later. weight reference: 4500 g or EFW >90/95% is considered macrosomia or large for gestational age. EFW <10% is small for gestational age. EFW 5% or less is considered intra-uterine growth restriction.>> Dictated by: Villa Call M.D. on 02/11/2022 at 15:43 Approved by: Villa Call M.D. on 02/11/2022 at 15:54
== END ==
PROVIDERS: PCP Registered Nurse Diabetes Educator; Referring Provider Obstetrics & Gynecology; Visit Provider Obstetrics & Gynecology
DX: O13.3 Gestational [pregnancy-induced] hypertension without significant proteinuria, third trimester (principal); Z3A.37 37 weeks gestation of pregnancy
CPT/HCPCS: 76815

== ENCOUNTER 2022-02-18 13:17 | Observation (INO) | payer BC, SELFPAY ==
--- NOTE | 2022-02-18 14:51 | DI.US.S_ITS ---
PROCEDURE: US OB BIOPHYSICAL PROFILE INDICATIONS: INTERMITTENT VARIABLE HEART DECELERATIONS. GDM. OUTSIDE/PRIOR DATING DATA: Last menstrual period (LMP): 06/03/2021. LMP-based estimated date of delivery (OVIDIO): 03/10/2022. First dating scan (date and location): 11/09/2021. Estimated date of delivery (OVIDIO) from first dating scan: 03/18/2022. TECHNIQUE: Real-time scanning was performed of the fetus for biophysical profile, with image documentation. Endovaginal scanning: Not performed COMPARISON: None. FINDINGS: General: A single living intrauterine gestation is present. Presentation: Vertex. Placenta: Placental position is posterior. Placental edge not identified with regards to the cervix. Amniotic fluid index: 17.7 cm, normal range is 5-24 cm. Single deepest vertical pocket is 6.4 cm. heart rate: 145 beats per minute. Maternal cervical canal: Not well visualized. estimated gestational age: 36 weeks 0 days Biophysical profile: Tone: 2 points. Movement: 2 points. Respiration: 2 points. Largest pocket of fluid: 2 points. IMPRESSION: 1. Single living intrauterine . 2. Biophysical profile score 8/8. We strive to produce accurate, complete, and clear reports of imaging services. To assist us in improving patient care, this report was composed using standard report templates and voice recognition software. Therefore, it may contain abnormal punctuation, insertions and/or omissions. Occasional wrong-word or sound-alike substitutions may occur. Though we review the report and make efforts to correct it, we do recommend that the report be read carefully in proper context to recognize any text inaccuracies. Dictated by: Mitchell Harrell M.D. on 02/18/2022 at 17:44 Approved by: Mitchell Harrell M.D. on 02/18/2022 at 17:52
== END 2022-02-18 15:57 | disposition home or self-care (01) ==
PROVIDERS: Admitting Provider Obstetrics & Gynecology; PCP Registered Nurse Diabetes Educator; Referring Provider Obstetrics & Gynecology; Visit Provider Obstetrics & Gynecology
DX: O24.414 Gestational diabetes mellitus in pregnancy, insulin controlled (principal); O13.3 Gestational [pregnancy-induced] hypertension without significant proteinuria, third trimester; Z3A.36 36 weeks gestation of pregnancy
CPT/HCPCS: 59025; 59050; 76819; G0378; G0379

== ENCOUNTER 2022-02-25 13:21 | Outpatient (CLI) | payer BC, SELFPAY ==
--- NOTE | 2022-02-25 14:32 | P.TNLD_ITS ---
Visit Information Visit Information Date of evaluation: 02/25/22 Primary OB Provider: Frances Enriquez On-call OB Provider: Tess Nguyen Reason for Evaluation: Yes non-stress test Comments/Additional reasons for admission: Patient here for a scheduled nonstress test for GDM-A2 and gestational hypertension. She is on labetalol 100 mg po BID. Vital Signs Vital Signs: BP 121/63 PFSH Medical History Anxiety (~10/2016) Chicken pox (~2002) Female fertility problem Fractures (~2008) History of gestational diabetes (~2016) Hypertension Impaired fasting blood sugar Irregular menstrual cycle (~2017) Liver enzyme elevation Obesity Oligomenorrhea Screening for cervical cancer Wears glasses Surgical History Anesthesia History of section (~10/31/16) History of surgery on arm (~2004) Family History Mother Cancer Low TSH level Sister Blood disorder Personal history of medical treatment Grandfather Hypertension Hyperlipidemia Stroke Grandmother Hypertension Thyroid disorder Grandmother Cancer Diabetes mellitus Hyperlipidemia Hypertension Stroke Grandfather Family estrangement Family/Other Myocardial infarction Heart murmur Father No problems noted. Social History marital status: number of children: 1 household members: spouse and children lives independently: Yes pets and animals: Yes (X 2 dogs) education level: college (some 14 years Ed) occupational status: employed (Working at a [employer] - minimal exposure) current occupational exposures/hazards: Yes nile/christianity: Anabaptist special nile needs: No Smoking Status: Never smoker second hand exposure: No alcohol intake: current substance use type: does not use Evaluation Evaluation Baseline heart rate: 145 Variability: Moderate (11-25) monitor accelerations: Present Monitor Decelerations: Absent Diagnosis, Plan/Disposition Plan/Disposition Plan: 36wk4d pregancy, GDM-A2, gestational HTN. NST is reactive, reassuring. Discharge home. Follow-up as per primary provider OB Disposition: home
== END 2022-02-25 14:15 | disposition home or self-care (01) ==
LOC: LABOR 13:57 → OB 03-01 08:00
PROVIDERS: PCP Registered Nurse Diabetes Educator; Referring Provider Obstetrics & Gynecology; Visit Provider Obstetrics & Gynecology
DX: O24.414 Gestational diabetes mellitus in pregnancy, insulin controlled (principal); O13.3 Gestational [pregnancy-induced] hypertension without significant proteinuria, third trimester; Z3A.36 36 weeks gestation of pregnancy
CPT/HCPCS: 59025; G0378; G0379

== ENCOUNTER 2022-03-04 05:42 | Inpatient (IN) | payer BC, SELFPAY ==
[2022-03-04 06:32] LABS: Add Manual Diff / Slide Review NO; Basophils Absolute Auto 0 /uL (0-100); Basophils Percent Auto 0.4 % (0-2); Eosinophils Absolute Auto 300 /uL (0-450); Eosinophils Percent Auto 3.4 % (2-4); Hematocrit 34.1 % (36-46); Hemoglobin 11.7 g/dL (12.0-16.0); Lymphocytes Absolute Auto 1800 /uL (1100-4500); Lymphocytes Percent Auto 23.8 % (25-40); Mean Corpuscular HGB Conc 34.3 % (30-36); Mean Corpuscular Hemoglobin 27.9 PG (26-34); Mean Corpuscular Volume 81.4 fL (80-100); Monocytes Absolute Auto 400 /uL (0-900); Monocytes Percent Auto 5.9 % (3-14); Neutrophils Absolute Auto 5000 /uL (1500-7000); Neutrophils Percent Auto 66.5 % (50-75); Platelet Count 171 X10^3/uL (150-400); Red Blood Cell Count 4.18 X10^6/uL (4.0-5.2); Red Cell Distribution Width 13.8 % (11.6-14.8); White Blood Cell Count 7.5 X10^3/uL (4.5-11.0)
[2022-03-04 06:44] LABS: COVID19 -Nasal RAPID Negative (Negative)
--- NOTE | 2022-03-04 07:28 | SUR.OPER ---
Supine on Padded OR bed, head on pillow, safety belt at thigh, arms secured on padded arm boards at <90 degrees abduction. Bump under right buttock. Legs uncrossed with pillow under knees, gel pad to heels, tape over blanket to lower legs.
[2022-03-04 08:21] VITALS: BP 135/83
[2022-03-04] MEDS: CEFAZOLIN VIAL 3 GM in SODIUM CHLORIDE 0.9% 100 ML IV (08:50)
--- NOTE | 2022-03-04 09:13 | SUR.OPER ---
Single live baby born boy at 0857. Pre procedure heart rate was 152. Placenta delivered at 0900. Placenta and 2 tubes of cord blood sent with L&D RN Pat Crain.
[2022-03-04 09:52] VITALS: BP 104/60; PULSE 74; RESP 19; TEMP 36.4; O2SAT 95
[2022-03-04 09:57] VITALS: BP 116/68; PULSE 74; RESP 14; O2SAT 95
[2022-03-04 10:02] VITALS: BP 118/69; PULSE 67; RESP 16; O2SAT 98
[2022-03-04 10:07] VITALS: BP 112/58; PULSE 66; RESP 19; O2SAT 98
--- NOTE | 2022-03-04 10:16 | P.HPOB_ITS ---
OB HPI Date/Time Date of admission: 03/04/22 Date Patient Seen: 03/04/22 Time Patient Seen: 07:30 History of Present Condition Chief complaint: REPEAT OVIDIO Calculator Estimated Delivery Date Method Current WG Current Estimate 03/18/22 Ultrasound #1 38w 1d Other Estimates 03/10/22 LMP (Uncertain) 39w 2d Estimated Gestational Age (weeks): 38 : 4 Para: 1 care: good care, initiated at week # (9), number of visits (10) and pounds weight gain (42) Dating criteria OB: LMP confirmed by 1st trimester US Ultrasounds: normal 1st trimester US and normal mid trimester US Obstetrical complications: gestational diabetes and gestational hypertension Medical complications OB: other (obesity) Indications Operative indications ( section): previous uterine surgery Preadmission Labs Last OB Lab Results: Blood Type O Positive 03/04/22 06:00 Antibody Screen Negative 03/04/22 06:00 Hematocrit 32.5 % (36-46) L 03/05/22 06:03 Hemoglobin 11.1 g/dL (12.0-16.0) L 03/05/22 06:03 Hepatitis B Surface Antigen Negative s/c (NEGATIVE) 08/17/21 15 :52 Hepatitis C Antibody Negative s/c (NEGATIVE) 08/17/21 15:52 Rubella Antibody 4.2 IU/mL (>15) L 08/17/21 15:52 Varicella-Zoster IgG Antibody 201 index (Immune >165) 08/17/21 15:52 Glucose 1 Hour 150 mg/dL (76-139) H 12/28/21 11:42 Glucose Tolerance Testing: Fasting (98), 1 hr (190), 2 hr (160) and 3 hr (97) -: Chlamydia screen: negative, Gonorrhea screen: negative and Urine: negative -: PAP smear: Normal (01/11) Genetic Screens: Quad screen: Normal External Labs -: Urine: negative Prior (ies) Past Pregnancies Del. Date GA/Weeks Labor Lgth Wt Sex Route Outcome Anesthesia Place Delv Breastfeed Preg Comp Name Unknown 6 spontaneous 10/31/16 37.2 48 8 lb 8 oz Female live - full t erm epidural Gonzales 20 months gestational hypertension gestational diabetes oligohydramnios Mary 03/24/20 6 spontaneous Delivery Date: 10/31/16 Last Updated by: Jenna Dubose R.N. *Induction from Monday night with C/S Monday pm... *Primary C/S for FTP/Arrest of Dilation and Cat II FHR *Start of her Anxiety PP Evaluation Evaluation Baseline heart rate: 145 Variability: Moderate (11-25) monitor accelerations: Present Monitor Decelerations: Absent PFSH Medical History Anxiety (~10/2016) Chicken pox (~2002) Female fertility problem Fractures (~2008) History of gestational diabetes (~2016) Hypertension Impaired fasting blood sugar Irregular menstrual cycle (~2017) Liver enzyme elevation Obesity Oligomenorrhea Screening for cervical cancer Wears glasses Surgical History Anesthesia History of section (~10/31/16) History of surgery on arm (~2004) Family History Mother Cancer Low TSH level Sister Blood disorder Personal history of medical treatment Grandfather Hypertension Hyperlipidemia Stroke Grandmother Hypertension Thyroid disorder Grandmother Cancer Diabetes mellitus Hyperlipidemia Hypertension Stroke Grandfather Family estrangement Family/Other Myocardial infarction Heart murmur Father No problems noted. Social History marital status: number of children: 1 household members: spouse and children lives independently: Yes pets and animals: Yes (X 2 dogs) education level: college (some 14 years Ed) occupational status: employed (Working at a [employer] - minimal exposure) current occupational exposures/hazards: Yes nile/bahai: Holiness special nile needs: No Smoking Status: Never smoker second hand exposure: No alcohol intake: current substance use type: does not use Meds Home Medications and Allergies Home Medications Medication Instructions Recorded Confirmed Type blood sugar diagnostic (Blood #120 ea 01/12/22 03/05/22 Rx Glucose Test strips) lancets #120 ea 01/12/22 03/05/22 Rx docusate sodium 100 mg capsule 200 mg PO DAILY #20 caps 03/05/22 Rx (Colace) ibuprofen 800 mg tablet 800 mg PO Q6H PRN pain #20 tabs 03/05/22 Rx labetalol 100 mg tablet 100 mg PO DAILY #60 tabs 03/05/22 03/05/22 Rx oxycodone 5 mg tablet 5 mg PO Q4H PRN pain #20 tabs 03/05/22 Rx Allergies Allergy/AdvReac Type Severity Reaction Status Date / Time No Known Drug Allergies Allergy Verified 02/11/22 11:59 OB Exam Narrative Exam Narrative: Generally: Patient lying in bed, no acute distress Lungs: Clear to auscultation bilaterally Cardiovascular: Regular rate and rhythm Fundal height: 42 cm Estimated weight: 8 1/2 pounds Extremities: 1+ edema Objective Labs Result Diagrams: 03/05/22 06:03 Labs: Laboratory Results - last 24 hr 03/04/22 03/04/22 03/04/22 06:00 06:00 06:00 WBC 7.5 RBC 4.18 Hgb 11.7 L Hct 34.1 L MCV 81.4 MCH 27.9 MCHC 34.3 RDW 13.8 Plt Count 171 Neut % (Auto) 66.5 Lymph % (Auto) 23.8 L Sierra % (Auto) 5.9 Eos % (Auto) 3.4 Baso % (Auto) 0.4 Neut # (Auto) 5000 Lymph # (Auto) 1800 Sierra # (Auto) 400 Eos # (Auto) 300 Baso # (Auto) 0 SARS-CoV-2 (PCR) Negative Blood Type O Positive Antibody Screen Negative Assessment and Plan Assessment and Plan Assessment and Plan narrative: Assessment: 27-year-old 4 para 1 at 38 weeks gestation with a previous section, gestational diabetes requiring insulin, and gestational hypertension. Plan: Repeat low-transverse section The risks, benefits, and alternatives to the procedure were explained to the patient. The risks including bleeding, infection, injury to the bowel, bladder, or ureters. She understands these risks and agrees to proceed. A full par Q was held and consent form was signed. Time Spent with Patient Total time spent with greater than 50% in coordination of care (as documented) at patient's floor/unit and/or counseling patient:: 15-24 minutes
--- NOTE | 2022-03-04 10:16 | PM.PREOP ---
Pre-operative Note COVID-19 COVID-19 status: Negative Result date/Date tested (Pos, Neg/Pending): 03/04/22 Criteria for continued procedure: Non-surgical alternatives not available or appropriate per current SOC Interval Note History & Physical reviewed/Exam performed by Physician: Yes Changes to H&P: No H&P completed within 30 days and has changed as indicated here:: 03/04/22
--- NOTE | 2022-03-04 10:23 | P.OP_ITS ---
Operative Date/Time/Diagnoses Date of procedure: 03/04/22 Time of procedure: 10:24 Pre-op diagnosis: 38 weeks gestation Previous C section Gestational hypertension Gestational diabetes requiring insulin Obesity Post-op diagnosis: same Procedure & Clinicians Procedure: Repeat low-transverse section Spinal anesthesia Same procedure as scheduled: Yes Indications: 38 weeks gestation Previous section Gestational hypertension Gestational diabetes requiring insulin Surgeon: Frances Enriquez Click Yes if Unassisted: No Industrial Sales Representative: Yuridia Urias Reason for Industrial Sales Representative: The physician assistant surgery was necessary in this obese patient to retract upon entry into the abdomen and uterus. She assisted with fundal pressure on delivery of the . She assisted with retraction and clipping of suture upon closure of the uterus and abdomen. She closed the contralateral fascia. Anesthesia Type: Spinal (With Duramorph) Operative Notes Findings: Live male in the vertex presentation Normal tubes and ovaries Normal uterus Closure Type: primary Specimen(s): cord blood and placenta Intraoperative meds administered: Duramorph, Ketorolac and Pitocin Applied: Catheter (To continuous drainage) Estimated Blood Loss (mL): 500 Blood products transfused: none Procedure in detail: The patient was taken to the operating room where she was placed in the seated position. Spinal anesthesia with Duramorph was administered. The patient was then placed in the dorsal supine position with a leftward tilt. She was prepped and draped in the usual sterile fashion. A Traxi drape was placed. A timeout was performed. After spinal analgesia was found to be adequate, a Pfannenstiel skin incision was made through the previous incision and carried through to the underlying layer fascia. The fascia was nicked in the midline, and the incision extended bilaterally with the Babcock scissors. The superior aspect of the fascial incision was grasped with a Trail clamps, elevated, and the underlying rectus muscles dissected off sharply and bluntly. Attention was then turned to the inferior aspect of this incision which in a similar fashion was grasped with a Trail clamps, elevated, and the underlying rectus muscles dissected off sharply and bluntly. The rectus muscles were in the midline. The peritoneum was identified, grasped between 2 hemostats, and entered sharply with the Metzenbaum scissors. This incision was extended superiorly and inferiorly with good visualization of the bladder. The bladder blade was inserted. The vesicouterine peritoneum was identified, grasped with the pickup, and entered sharply with the Metzenbaum scissors. This incision was extended bilaterally, and the bladder flap was created digitally. The bladder blade was reinserted. The lower uterine segment was incised in a transverse fashion with the scalpel. Upon entering the amniotic sac there was moderate amount of clear amniotic fluid. The infant's head was delivered with vacuum assistance. The nose and mouth were suctioned with bulb suction. The remainder of the body delivered without difficulty. The cord was double clamped and cut. The infant was handed off to waiting RN and RT. The placenta was delivered manually. The uterus was cleared of all clots and debris. The uterine incision was repaired with #1 chromic in a running interlocking fashion, and a second layer the same suture was used for an imbricating layer. Hemostasis was achieved. The tubes and ovaries were examined and were found to be normal. The gutters were cleared of all clots and debris. The bladder flap was reapproximated using 2-0 Vicryl in a running fashion. The parietal peritoneum was closed using 2-0 Vicryl in a running fashion. The fascia was reapproximated using 0 Vicryl in a running fashion. The subcutaneous layer was copiously irrigated with warm normal saline. 5 simple interrupted sutures of 3-0 Vicryl were placed to reapproximate the subcutaneous layer. The skin was closed with 4-0 undyed Vicryl in a subcuticular fashion. Steri-Strips were placed. An Aquacell dressing was placed. The uterus was expressed of a small amount of old blood. Sponge, lap, and instrument counts were correct x-2. The patient tolerated the procedure well, and was taken to PACU in stable condition. Complications: none Baby 1: Infant Gender: Male Presentation: vertex Position: Left Occiput Transverse Placental Delivery Description: Expressed Cord Vessel Description: 3 Vessels score (1 min): 8 score (5 min): 9 weight: 8 lb 9 oz Post-operative Condition: stable Disposition: PACU Aftercare: routine postop
[2022-03-04] MEDS: ACETAMINOPHEN 325 MG TABLET 650 MG PO ×2 (12:17→19:56)
[2022-03-04] MEDS: OXYCODONE IR 5 MG TABLET PO (12:18)
[2022-03-04] MEDS: KETOROLAC 30 MG/ML VIAL IV ×2 (15:30→23:06)
[2022-03-04] MEDS: OXYCODONE IR 10 MG TABLET PO ×2 (16:09→20:46)
[2022-03-04 20:49] VITALS: BP 115/72; PULSE 74
[2022-03-04] MEDS: LABETALOL 100 MG TABLET PO (20:49)
[2022-03-05] MEDS: OXYCODONE IR 10 MG TABLET PO ×3 (02:10→15:50)
[2022-03-05] MEDS: ACETAMINOPHEN 325 MG TABLET 650 MG PO ×3 (02:11→15:49)
[2022-03-05 06:32] LABS: Hematocrit 32.5 % (36-46); Hemoglobin 11.1 g/dL (12.0-16.0)
[2022-03-05] MEDS: METFORMIN HCL 500 MG TABLET PO (09:40)
[2022-03-05] MEDS: PRENATAL VIT,CALC/IRON/FOLIC 1 TABLET 1 TAB PO (09:40)
[2022-03-05] MEDS: DOCUSATE 100 MG CAPSULE 200 MG PO (09:40)
[2022-03-05 09:41] VITALS: BP 118/68; PULSE 86; TEMP 36.6
[2022-03-05] MEDS: LABETALOL 100 MG TABLET PO (09:41)
[2022-03-05] MEDS: IBUPROFEN 600 MG TABLET PO (12:57)
[2022-03-05 15:40] VITALS: BP 120/73; PULSE 88; RESP 16; TEMP 36.5
[2022-03-05 15:50] VITALS: TEMP 36.5
[2022-03-05] MEDS: MEASLES,MUMPS,RUBELLA VACC/PF 0.5 ML VIAL SUBCUT (16:18)
--- NOTE | 2022-03-05 16:37 | P.DS_ITS ---
Discharge Providers Provider Date of admission: 03/04/22 05:42 Discharge Date: 03/05/22 Primary care physician: MICHAEL Garcia Consults: 03/04/22 10:28 Consult to [employer] Routine Comment: Discharge provider: Frances Enriquez MD Summary Hospital Course Date Patient Seen: 03/05/22 Time Patient Seen: 15:30 Diagnoses: Thirty-eight weeks gestation Previous section Gestational hypertension Obesity Gestational diabetes requiring insulin Hospital Course: Patient is a 27-year-old 4 para 2 who presented on March 04, 2022 for a scheduled repeat low-transverse section. She underwent this procedure without complication. Her course was unremarkable. Her Chiu catheter was removed on day # 1. She was able to void without the catheter. She expressed a desire to go home. She was discharged home on March 05, 2022. Peripartum Data Delivery Method: Section (Repeat) Laceration Description: None Episiotomy description: None Procedures: Spinal anesthesia Repeat low-transverse section complications: none 1: Gender: Male Disposition of : home Status at Discharge Cognitive/behavioral status at discharge: oriented Functional status at discharge: independent ambulation Overall status at discharge: patient is progressing back to baseline Time Spent with Patient Time attestation: Total time spent providing and/or coordinating discharge services: Time spent: Less than 30 minutes Objective Labs Result Diagrams: 03/05/22 06:03 Labs: Laboratory Results - last 24 hr 03/05/22 06:03 Hgb 11.1 L Hct 32.5 L Exam Vital Signs (past 8 hours): - 03/05/22 09:41 03/05/22 09:41 03/05/22 15:40 Temperature 97.8 F 97.7 F Pulse Rate 86 88 Respiratory Rate 16 Blood Pressure 118/68 120/73 03/05/22 15:50 Temperature 97.7 F Pulse Rate Respiratory Rate Blood Pressure Oxygen Delivery Method Room Air Narrative Exam Narrative: Generally: Patient is sitting up in bed, nursing infant, no acute distress Lungs: Clear to auscultation bilaterally Cardiovascular: Regular rate and rhythm Fundus: Firm at U -1 Incision: Clean dry and intact with Aquacel dressing Extremities: 1+ edema, negative Homans Discharge Plan Discharge Plan Patient Disposition: Home Provider Discharge Comment: Call with fever, chills, redness or drainage around the incision, or bleeding vaginally more than a pad in an hour Ibuprofen 600-800 mg every 6 hours Tylenol 650 mg every 6 hours Stool softener as needed Discharge orders & Medications Prescriptions: New oxycodone 5 mg tablet 5 mg PO Q4H PRN (Reason: pain) Qty: 20 0RF docusate sodium [Colace] 100 mg capsule 200 mg PO DAILY Qty: 20 2RF ibuprofen 800 mg tablet 800 mg PO Q6H PRN (Reason: pain) Qty: 20 3RF Changed labetalol 100 mg tablet 100 mg PO DAILY Qty: 60 0RF Discontinued progesterone micronized [Prometrium] 200 mg capsule 200 mg PO DAILY Qty: 90 1RF Humulin N NPH Insulin KwikPen 100 unit/mL (3 mL) insulin pen 10 unit SUBCUT QPM Qty: 15 1RF Rx Instructions: at bedtime. triamcinolone acetonide 0.025 % cream 1 applic topical BID Qty: 15 1RF Rx Instructions: Use sparingly for shortest duration possible Aspirin 81 mg PO DAILY metformin 500 mg tablet 500 mg PO DAILY Qty: 60 2RF Label Comments: Hasn't taken since April. Rx Instructions: After 2 weeks, increase to 1 tab twice daily nystatin-triamcinolone 100,000-0.1 unit/gram-% ointment 1 applic topical BID Qty: 30 0RF Rx Instructions: Place under pannus and above pubic symphysis over rash, twice a day for 2-3 weeks No Action (DME) lancets Misc See Rx Instructions .ROUTE .MEDSUPPLY Qty: 120 3RF Rx Instructions: Testing blood sugars fasting and 2 hr PP (DME) Blood Glucose Test Strip See Rx Instructions .ROUTE .MEDSUPPLY Qty: 120 3RF Rx Instructions: Testing blood sugars fasting and 2 hr PP Follow up/Referrals: Frances Enriquez MD [Physician] - (My office will call patient on Monday to schedule Aquacel dressing removal on Monday) Diet/Activity/Treatments Diet: Regular Activity: No heavy lifting Nothing in the vagina for 6 weeks Skin/Wound/Dressing Care Report to your healthcare provider any signs of infection, such as:: chills, fever, increased pain, unusual drainage and unusual redness Dressing: Do not remove Visit Report/Discharge Packet Instructions: DI for , DI for Prescription Opioid Use Stand Alone Forms: Discharge: Care Discharge Data Primary Care Provider: Subhash Velasquez
--- NOTE | 2022-03-20 13:26 | PC.NURSE ---
Pt has been discharged. I removed and administered oxycodone 10mg 03/04/2022 around 12:15pm. The oxycodone was not scanned in the MAR, resulting in a discrepancy. Since the discrepancy was noted on 03/18/2022, too much time has lapsed since this administration, making pharmacy unable to edit [facility]. I discussed this discrepancy with Fortino, pharmacist, and we have resolved this issue. -Renetta SETH
--- NOTE | 2022-03-20 14:47 | PC.NURSE ---
This patient has been discharged and I am writing a note due to the discrepancy in the [facility]. I removed Oxycodone 10mg on 03/04/22 at 12:15pm. Pt did not want/need to take this medication and Jordan Whitley RN witnessed my return of oxycodone 10mg in the external return bin. Count was incorrect when pharmacy emptied the external bin. Fortino, pharmacist, is aware of this situation -Renetta SETH
== END 2022-03-05 16:46 | disposition home or self-care (01) | DRG 788 ==
PROVIDERS: Admitting Provider Obstetrics & Gynecology; PCP Registered Nurse Diabetes Educator; Referring Provider Obstetrics & Gynecology; Visit Provider Obstetrics & Gynecology
PROC: 10D00Z1 Extraction of Products of Conception, Low, Open Approach (ICD-10-PCS; CPT 59514; principal; 2022-03-04 07:45)
DX: O34.211 Maternal care for low transverse scar from previous cesarean delivery (principal); O13.4 Gestational [pregnancy-induced] hypertension without significant proteinuria, complicating childbirth; O24.424 Gestational diabetes mellitus in childbirth, insulin controlled; O99.214 Obesity complicating childbirth; Z3A.38 38 weeks gestation of pregnancy; Z37.0 Single live birth; Z20.822 Contact with and (suspected) exposure to COVID-19
CPT/HCPCS: 36415; 59050; 59510; 59514; 85014; 85018; 85025; 86850; 86900; 86901; 87635; C9803; J0690; J1885; J2250; J2405; J2590; J3010